=== PATIENT | male | born 1965 ===

== ENCOUNTER 2018-01-30 09:14 | Emergency (ER) | payer OTHER ==
[~2018-01-30] VITALS: Ht 190.5 cm; Wt 95.3 kg
[2018-01-30] MEDS ORDERED: CARAFATE1 GM/10 ML (09:36)
[2018-01-30] MEDS ORDERED: ZANTAC300 MG PO (09:37)
[2018-01-30] MEDS ORDERED: OMEPRAZOLE40 MG PO (09:37)
[2018-01-30] MEDS ORDERED: ESOMEPRAZOLE MA40 MG PO (09:37)
== END 2018-01-30 19:01 | disposition home or self-care (01) ==
LOC: ER 09:14
DX: K29.60 Other gastritis without bleeding (principal)